=== PATIENT | male | born 1955 | race African-American/Black ===

== ENCOUNTER 2016-08-12 23:59 | Emergency (ER) | payer OTHER | END 2016-08-13 02:19 | disposition home or self-care (01) | LOC: CED 23:59 | DX: J20.9 Acute bronchitis, unspecified (principal) | CPT/HCPCS: 94640; 99283 ==

== ENCOUNTER 2016-09-01 00:07 | Emergency (ER) | payer OTHER | END 2016-09-01 03:49 | disposition left against medical advice (07) | LOC: CED 00:07 | DX: Z53.21 Procedure and treatment not carried out due to patient leaving prior to being seen by health care provider (principal) ==